=== PATIENT | male | born 1980 ===

== ENCOUNTER 2017-01-28 05:49 | Emergency (ER) | payer OTHER ==
--- NOTE | 2017-01-28 06:41 | ED PDOC ---
HPI: Psych/Substance Abuse Time Seen by Provider: 01/28/17 06:05 Chief Complaint (Nursing): Alcohol Ingestion Chief Complaint (Provider): Alcohol Ingestion ED Caveat: Intoxicated History Per: EMS Additional Complaint(s): 36 year old male brought in by EMS for evaluation of intoxication. Noted facial injuries but unable to obtain history because of alcohol intoxication. PMD: unknown Past Medical History Reviewed: Historical Data, Nursing Documentation, Vital Signs Vital Signs: Last Vital Signs Temp 97.0 F L 01/28/17 05:59 Pulse 100 H 01/28/17 05:59 Resp 16 01/28/17 05:59 BP 139/88 01/28/17 05:59 Pulse Ox 100 01/28/17 05:59 - Family History Family History: States: Unknown Family Hx - Allergies Allergies/Adverse Reactions: Allergies Allergy/AdvReac Type Severity Reaction Status Date / Time No Known Allergies Allergy Verified 01/28/17 06:05 Review of Systems Skin: Positive for: Other (right side facial abrasions) Physical Exam - Reviewed Nursing Documentation Reviewed: Yes Vital Signs Reviewed: Yes - Physical Exam Extremity: Positive for: Normal ROM (moving all extremities equally). Negative for: Pedal Edema, Deformity Neurologic/Psych: Positive for: Alert, Other (mumbles) - ECG O2 Sat by Pulse Oximetry: 100 (RA) Pulse Ox Interpretation: Normal Medical Decision Making Medical Decision Making: Time: 06:19 Impression: Head injury with intoxication Initial Plan: --Head CT without contrast --Maxillofacial CT without contrast Time: 06:45 --Transfer of care endorsed by me, to Dr. Jarvis. Scribe Attestation: Documented by Marion Constantino, acting as a scribe for Jose Vu MD Provider Scribe Attestation: All medical record entries made by the Scribe were at my direction and personally dictated by me. I have reviewed the chart and agree that the record accurately reflects my personal performance of the history, physical exam, medical decision making, and the department course for this patient. I have also personally directed, reviewed, and agree with the discharge instructions and disposition. Disposition - Clinical Impression Clinical Impression: Alcohol abuse - Patient ED Disposition Is Patient to be Admitted: Transfer of Care - Disposition Disposition: Transfer of Care Disposition Time: 07:00 Condition: STABLE Forms: [employer] (Vietnamese) Patient Signed Over To: Jarvis,Aida Colby Handoff Comments: pending sobriety
--- NOTE | 2017-01-28 07:30 | ED PDOC ---
- ECG O2 Sat by Pulse Oximetry: 100 (RA) Pulse Ox Interpretation: Normal Medical Decision Making Medical Decision Making: Receiving sign out: Patient signed out to me by Dr. Vu at [address] studies, re-evaluation. Scribe Attestation: Documented by Estefani Marques acting as a scribe for MD YELITZA. Provider Attestation: All medical record entries made by the Scribe were at my direction and personally dictated by me. I have reviewed the chart and agree that the record accurately reflects my personal performance of the history, physical exam, medical decision making, and the department course for this patient. I have also personally directed, reviewed, and agree with the discharge instructions and disposition. CT scans reviewed. No fracture. Will discharge when awake and steady Disposition Doctor Will See Patient In The: Office Counseled Patient/Family Regarding: Diagnosis, Need For Followup - Clinical Impression Clinical Impression: Alcohol abuse - POA Present On Arrival: Falls Or Trauma - Disposition Disposition: Routine/Home Disposition Time: 08:30 Condition: STABLE Instructions: Alcohol Intoxication (ED) Forms: [employer] ([place]ian) Progress Note - Review of Symptoms Events since last encounter: Time: 754 CT Maxillofacial FINDINGS: Bones/joints: The temporomandibular joints show no evidence of degeneration or dislocation. No acute fracture. Soft tissues: Right facial soft tissue swelling. Orbits: Unremarkable. Sinuses: There is minimal mucoperiosteal thickening in the maxillary sinuses, consistent with chronic sinusitis. IMPRESSION: No acute fracture. Facial soft tissue swelling. CT Head FINDINGS: Brain: Unremarkable. No hemorrhage. No significant white matter disease. No edema. Ventricles: Unremarkable. No ventriculomegaly. Bones/joints: Unremarkable. No acute fracture. Soft tissues: Right frontal scalp soft tissue swelling. Sinuses: There is minimal mucoperiosteal thickening in the maxillary sinuses, consistent with chronic sinusitis. Mastoid air cells: Unremarkable as visualized. No mastoid effusion. IMPRESSION: No evidence of an acute intracranial abnormality.
--- NOTE | 2017-01-28 07:47 | CT ---
EXAM: CT Head Without Intravenous Contrast CLINICAL HISTORY: 36 years old, male; Injury or trauma; Injury ETOH; Initial encounter; Blunt trauma (contusions or hematomas); Additional info: Intox, head trauma TECHNIQUE: Axial computed tomography images of the head/brain without intravenous contrast. All CT scans at this facility use one or more dose reduction techniques, viz.: automated exposure control; ma/kV adjustment per patient size (including targeted exams where dose is matched to indication; i.e. head); or iterative reconstruction technique. Coronal and sagittal reformatted images were created and reviewed. COMPARISON: No relevant prior studies available. FINDINGS: Brain: Unremarkable. No hemorrhage. No significant white matter disease. No edema. Ventricles: Unremarkable. No ventriculomegaly. Bones/joints: Unremarkable. No acute fracture. Soft tissues: Right frontal scalp soft tissue swelling. Sinuses: There is minimal mucoperiosteal thickening in the maxillary sinuses, consistent with chronic sinusitis. Mastoid air cells: Unremarkable as visualized. No mastoid effusion. IMPRESSION: No evidence of an acute intracranial abnormality.
--- NOTE | 2017-01-28 07:51 | CT ---
EXAM: CT Maxillofacial Without Intravenous Contrast CLINICAL HISTORY: 36 years old, male; Injury or trauma; Injury Etof; Initial encounter; Abrasion and blunt trauma (contusions or hematomas); Cheek bone and forehead; Bilateral; Additional info: Intox, facial trauma TECHNIQUE: Axial computed tomography images of the face without intravenous contrast. All CT scans at this facility use one or more dose reduction techniques, viz.: automated exposure control; ma/kV adjustment per patient size (including targeted exams where dose is matched to indication; i.e. head); or iterative reconstruction technique. Coronal and sagittal reformatted images were created and reviewed. COMPARISON: No relevant prior studies available. FINDINGS: Bones/joints: The temporomandibular joints show no evidence of degeneration or dislocation. No acute fracture. Soft tissues: Right facial soft tissue swelling. Orbits: Unremarkable. Sinuses: There is minimal mucoperiosteal thickening in the maxillary sinuses, consistent with chronic sinusitis. IMPRESSION: No acute fracture. Facial soft tissue swelling.
[2017-01-28 10:32] VITALS: BP 131/82; PULSE 89; RESP 18; TEMP 97.6; O2SAT 99
== END 2017-01-28 10:50 | disposition home or self-care (01) ==
LOC: H.ER 05:49
DX: F10.10 Alcohol abuse, uncomplicated (principal); S09.90XA Unspecified injury of head, initial encounter; W19.XXXA Unspecified fall, initial encounter; Y92.89 Other specified places as the place of occurrence of the external cause